=== PATIENT | female | born 1995 | race Caucasian/White ===

== ENCOUNTER → 2017-04-07 | Outpatient (CLI) | payer SELFPAY ==
--- NOTE | 2017-04-07 17:44 | RADIOLOGY REPORT (SQ) ---
EXAM DESCRIPTION: U/S OB 14+ TRNABD 1GES W/O DOP COMPLETED DATE/TIME: 04/07/2017 5:19 pm REASON FOR STUDY: ENCOUNTER FOR SUPERVISION OF NORMAL FIRST , SECOND TRIMESTER Z34.02 ENCN TR FOR SUPRVSN OF NORMAL FIRST PREG, SECOND TRIME COMPARISON: None. TECHNIQUE: Static and Dynamic grayscale imaging performed of gravid uterus using transabdominal appr oach. Additional selected color Doppler and spectral images recorded. All stored on PACS. LIMITATIONS: None. FINDINGS: EGA: 33 weeks 5 days. DIANA: 05/21/2017 EFW: 2,147 grams JAIMEE: 10.8 PLACENTA: Anterior location. GRADE: II PRESENTATION: Cephalic. ANATOMY: HEART RATE: 175 beats per minute. FOUR CHAMBER HEART: Visualized. THREE VESSEL CORD: Yes. CORD INSERTION: Visualized. KIDNEYS AND BLADDER: Visualized. Appear normal. STOMACH: Visualized. Appears normal. SPINE: Normal as visualized. BRAIN AND LATERAL VENTRICLES: Poorly visualized due to age and lie. OTHER: No other significant finding. MATERNAL ADNEXA: Maternal ovaries not visualized. CERVICAL LENGTH: 3.1 cm. Closed. OTHER: No other significant finding. IMPRESSION: LIVING INTRAUTERINE . ESTIMATED GESTATIONAL AGE 33 WEEKS 5 DAYS. NO VISUALIZED ANOMALIES. Trimester of : Third trimester - 28 weeks to delivery. TECHNICAL DOCUMENTATION: JOB ID: [id number] [employer]- All Rights Reserved
== END ==
LOC: RAD 15:39
PROVIDERS: ATTEND Nurse Practitioner Women's Health
DX: Z34.03 Encounter for supervision of normal first pregnancy, third trimester (principal)
CPT/HCPCS: 76805

== ENCOUNTER 2017-04-12 02:11 | Inpatient (IN) | payer SELFPAY ==
[2017-04-12] MEDS ORDERED: RINGERS SOLUTION,LACTATED 1,000 ML IV PRN (02:13)
[2017-04-12] MEDS ORDERED: OXYTOCIN/NORMAL SALINE 20 UNIT/1,000 ML RTUINJ ONE (02:30)
[2017-04-12] MEDS ORDERED: LIDOCAINE 1% INJ-PF (10 MG/ML) 30 ML SDV ONE (02:30)
[2017-04-12] MEDS ORDERED: MISOPROSTOL 0.2 MG TABLET ONE (02:30)
[2017-04-12 02:52] LABS: ABSOLUTE LYMPHOCYTES (AUTO) 1.4 10^3/uL (0.5-4.7); ABSOLUTE MONOCYTES (AUTO) 1.1 10^3/uL (0.1-1.4); ABSOLUTE NEUT (AUTO) 16.4 10^3/uL (1.7-8.2); BASOPHILS % (AUTO) 0.2 % (0-2); HEMATOCRIT 35.7 % (36.0-47.0); HEMOGLOBIN 12.2 g/dL (12.0-15.5); HGB HCT DIFFERENCE 0.9; LYMPHOCYTES % (AUTO) 7.2 % (13-45); MEAN CORPUSCULAR HGB CONC 34.2 g/dL (32.0-36.0); MEAN CORPUSCULAR VOLUME 88 fl (80-97); MONOCYTES % (AUTO) 5.7 % (3-13); RED BLOOD COUNT 4.06 10^6/uL (3.72-5.28); RED CELL DISTRIBUTION WIDTH 13.8 % (11.5-14.0); SEGMENTED NEUTROPHILS % (AUTO) 86.9 % (42-78); WHITE BLOOD COUNT 18.9 10^3/uL (4.0-10.5)
[2017-04-12] MEDS ORDERED: GLYCERIN/WITCH HAZEL LEAF 1 EACH MED..PAD TP PRN (03:39)
[2017-04-12] MEDS ORDERED: DIPHENHYDRAMINE HCL 25 MG CAPSULE PO PRN (03:39)
[2017-04-12] MEDS ORDERED: PROMETHAZINE HCL INJ 25 MG/1 ML VIAL IV PRN (03:39)
[2017-04-12] MEDS ORDERED: MAGNESIUM HYDROXIDE SUSP 30 ML UDCUP PO PRN (03:39)
[2017-04-12] MEDS ORDERED: ZOLPIDEM TARTRATE 5 MG TABLET PO PRN (03:39)
[2017-04-12] MEDS ORDERED: BENZOCAINE/MENTHOL AEROSOL SPRAY 56 ML TOP PRN (03:39)
[2017-04-12] MEDS ORDERED: DIPH/PERTUSS(ACELL)/TETANUS VAC/PF 0.5 ML SYR (>=10YO) IM PRN (03:39)
[2017-04-12] MEDS ORDERED: NA PHOS,M-B/NA PHOS,DI-BA (ADULT) 133 ML ENEMA PR PRN (03:39)
[2017-04-12] MEDS ORDERED: PSEUDOEPHEDRINE HCL 30 MG TABLET PO PRN (03:39)
[2017-04-12] MEDS ORDERED: DIBUCAINE 1% OINTMENT 28 GM TP PRN (03:39)
[2017-04-12] MEDS ORDERED: PROMETHAZINE HCL 25 MG SUPP.RECT PR PRN (03:39)
[2017-04-12] MEDS ORDERED: MEASLES,MUMPS&RUBELLA VACC/PF 0.5 ML VIAL SUBCUT PRN (03:39)
[2017-04-12] MEDS ORDERED: PROMETHAZINE HCL 25 MG TABLET PO PRN (03:39)
[2017-04-12] MEDS ORDERED: ACETAMINOPHEN WITH CODEINE #3 TABLET PO PRN ×2 (03:39)
[2017-04-12] MEDS ORDERED: ACETAMINOPHEN 650 MG SUPP.RECT PR PRN (03:39)
[2017-04-12] MEDS ORDERED: OXYTOCIN/NORMAL SALINE 20 UNIT/1,000 ML RTUINJ IV PRN (03:39)
[2017-04-12] MEDS ORDERED: IBUPROFEN 800 MG TABLET ONE (04:36)
[2017-04-12 04:44] LABS: APPEARANCE,URINE CLOUDY; BILIRUBIN,URINE NEGATIVE (NEGATIVE); GLUCOSE, URINE NEGATIVE (NEGATIVE); KETONES,URINE 20 mg/dL (NEGATIVE); LEUKOCYTE ESTERASE,URINE MODERATE (NEGATIVE); NITRITE,URINE NEGATIVE (NEGATIVE); PROTEIN,URINE 100 mg/dL (NEGATIVE); URINE SPECIFIC GRAVITY 1.004; UROBILINOGEN,URINE NEGATIVE mg/dL (<2.0)
[2017-04-12 05:02] LABS: URINE BARBITURATES SCREEN NEGATIVE; URINE METHADONE SCREEN NEGATIVE; URINE OPIATES LOW NEGATIVE; URINE PHENCYCLIDINE SCREEN NEGATIVE
--- NOTE | 2017-04-12 05:23 | Admission Physical ---
Datetime Report Generated by CPN: 04/12/2017 05:23 CURRENT ADMISSION Hx Assessment: No Care Chief Complaint Other: brought by ems after home delivery Admit Impression- Other: s/p vag delivery with perineal laceration Admit Plan- Other: initiate postdelivery care ALLERGIES Medication Allergies: No Medication Allergies: No Known Allergies (12/10/2011) Latex: No Latex Allergies OBSTETRICAL HISTORY EDC: 05/21/2017 00:00 : 1 Para: 1 Term: 0 : 1 SAB: 0 IAB: 0 Livin Gestational Diabetes: No Rh Sensitization: No Incompetent Cervix: No Infertility: No ART Treatment: No Uterine Anomaly: No IUGR: No Hx Previous C/S: No Macrosomia: No Hx Loss/Stillborn: No PIH: No Hx : No Placenta Previa/Abruption: No Depression/PP Depression: No PTL/PROM: No Post Hemorrhage: No Current Procedures: Ultrasound Obstetrical History Comments: 2016 baby boy SEE RECORDS Alcohol: No Marijuana : No Cocaine: No Other Illicit Drugs: No Cigarettes: Never Smoker. [id number] MEDICAL HISTORY Diabetes: No Blood Transfusion: No Pulmonary Disease (Asthma, TB): No Breast Disease: No Hypertension: No Pilates Coordinator Surgery: No Heart Disease: No Hosp/Surgery: No Autoimmune Disorder: No Anesthetic Complications: No Kidney Disease: No Abnormal Pap Smear: No Neuro/Epilepsy: No Psychiatric Disorders: No Other Medical Diseases: No Hepatitis/Liver Disease: No Significant Family History: No Varicosities/Phlebitis: No Trauma/Violence : No Thyroid Dysfunction: No INFECTIOUS HISTORY Gonorrhea: No Genital Herpes: No Chlamydia: No Tuberculosis: No Syphilis: No Hepatitis: No HIV/AIDS Exposure: No Rash or Viral Illness: No HPV: No PHYSICAL EXAM General: Normal HEENT: Normal Neurologic: Normal Thyroid: Normal Heart: Normal Lungs: Normal Breast: Normal Back: Normal Abdomen: Normal Genitourinary Exam: Abnormal Extremities: Normal DTRs: Normal Pelvic Type: Adequate Physical Exam Comments: 2nd degree vag delivery with extension into ant anal sphincter placenta examined-intact FETUS A Admit Comment: see delivery note for repair of lac -check no pnc labs PLANS FOR LABOR AND DELIVERY Labor and Delivery: None Feeding Preference: Breast Benefit of Breast Feed Discussed: Yes Circumcision: Yes INFORMED CONSENT Signature: with User ID: [email or web address]
--- NOTE | 2017-04-12 05:25 | Delivery Summary ---
Del Sum A-C Datetime Report Generated by CPN: 04/12/2017 05:25 DELIVERY PERSONNEL DELIVERY PERSONNEL: [id number] Delivery Doctor:: Allison Riojas MD Labor and Delivery Nurse:: Yaneth Yao RN Insulation Board Calender Operator/HARDWARE INSTALLATION COORDINATOR: Amy Figueredo, ST MATERNAL INFORMATION Delivery Anesthesia: None Medications After Delivery: Pitocin Bolus-Please Comment; Pitocin Drip 20 Units/1000ml NSS Meds After Delivery Comment: NS with Pitocin 20 units/liter IVF bolus Maternal Complications: Precipitous Labor (<3hrs); Other Other Maternal Complications: no PNC, delivered at home Provider Comments: Pt brought by ems after home delivery of male . Placenta spont and intact to my inspection. Perineal lac repaired. EBL 200cc LABOR SUMMARY EDC: 05/21/2017 00:00 No. Babies in Womb: 1 Labor Anesthesia: None LABOR INFORMATION Reason for Induction: Not Applicable Oxytocin: N/A Group B Beta Strep: unknown Antibiotics # of Doses: 0 Steroids Given: None Reason Steroids Not Administered: Not Applicable STAGES OF LABOR Stage 3 hr: 1 Stage 3 min: 23 VAGINAL DELIVERY Laceration Extension: Second Degree Laceration Type: Perineal Laceration Repair Note: with 1 percent lidcaine and 2- chromic ant and inf aspect of anal sphincter capsule reapproximaed with 2 -0 chromic figure of 8s. Remainder of repair in standard fashion Sponge Count Correct: N/A Sharps Count Correct: Yes CSECTION DELIVERY Primary Indication: N/A Secondary Indication: N/A CSection Incision: N/A BABY A INFORMATION Infant Delivery Date/Time: 04/12/2017 01:19 Method of Delivery: Vaginal Born in Route : Yes : N/A Forceps: N/A Vacuum Extraction: N/A Shoulder Dystocia : No PRESENTATION/POSITION BABY A Presentation: Cephalic Cephalic Presentation: Vertex Breech Presentation: N/A PLACENTA INFORMATION BABY A Placenta Delivery Time : 04/12/2017 02:42 Placenta Method of Delivery: Spontaneous Placenta Status: Delivered SCORES BABY A Heart Rate 10 min: >100 bpm Resp Effort 10 min: Good Cry Reflex Irritability 10 min: Cough or Sneeze or Pulls Away Muscle Tone 10 min: Active Motion Color 10 min: Body Avenue B And C, Extremities Blue Resuscitation Effort 10 min: Tactile Stimulation SCORE 10 MIN: 9 INFORMATION BABY A Gestational Age at Delivery: 34.3 Gestational Status: Late - 34- 36.6 Weeks Infant Outcome : Liveborn Infant Condition : Stable Sex: Male IDENTIFICATION BABY A Infant Verification Date/Time: 04/12/2017 03:46 ID Band Number: [id number] Mother's Name Verified: Yes Infant RN Verifying Infant: rn jhoan Additional Verifying Personnel: rody gomez WEIGHT/LENGTH BABY A Birthweight (gm): 3080 Weight (lb): 6 Weight (oz): 13 Infant Length (in): 20.25 Infant Length (cm): 51.44 CORD INFORMATION BABY A No. Cord Vessels: 3 Nuchal Cord : N/A Cord Blood Taken: No-Annotate delivered at home Infant Suction: Mouth; Nose
[2017-04-12] MEDS: IBUPROFEN 800 MG TABLET PO SCH ×3 (05:51→22:38)
[2017-04-12 06:08] LABS: CHLAM PCR NOT DETECTED (NOT DETECT)
[2017-04-12] MEDS: FAMOTIDINE 20 MG TABLET PO SCH ×2 (09:10→22:38)
[2017-04-12] MEDS: SENNOSIDES/DOCUSATE 8.6-50 MG 1 EACH TABLET PO SCH (09:10)
[2017-04-12] MEDS: DOCUSATE SODIUM 100 MG CAPSULE PO SCH ×2 (09:10→17:14)
[2017-04-12] MEDS: PRENATAL VITAMIN W-O CA NO5/FE FUMARATE/FA CAPSULE PO SCH (09:10)
[2017-04-12] MEDS: FERROUS SULFATE 325 MG TABLET PO SCH ×2 (09:11→17:14)
[2017-04-13] MEDS: IBUPROFEN 800 MG TABLET PO SCH ×3 (06:27→21:31)
[2017-04-13 07:42] LABS: HEPATITIS C VIRUS AB <0.1 s/co ratio (0.0-0.9)
[2017-04-13 08:09] LABS: HEMATOCRIT 34.2 % (36.0-47.0); HEMOGLOBIN 11.7 g/dL (12.0-15.5); HGB HCT DIFFERENCE 0.9; MEAN CORPUSCULAR HEMOGLOBIN 30.7 pg (27.0-33.4); MEAN CORPUSCULAR HGB CONC 34.2 g/dL (32.0-36.0); MEAN CORPUSCULAR VOLUME 90 fl (80-97); RED BLOOD COUNT 3.81 10^6/uL (3.72-5.28); WHITE BLOOD COUNT 13.5 10^3/uL (4.0-10.5)
[2017-04-13] MEDS: DOCUSATE SODIUM 100 MG CAPSULE PO SCH ×2 (10:01→17:26)
[2017-04-13] MEDS: FAMOTIDINE 20 MG TABLET PO SCH ×2 (10:01→21:31)
[2017-04-13] MEDS: FERROUS SULFATE 325 MG TABLET PO SCH ×2 (10:02→17:26)
[2017-04-13] MEDS: PRENATAL VITAMIN W-O CA NO5/FE FUMARATE/FA CAPSULE PO SCH (10:02)
[2017-04-13] MEDS: SENNOSIDES/DOCUSATE 8.6-50 MG 1 EACH TABLET PO SCH (10:02)
--- NOTE | 2017-04-13 10:35 | PDOC PROGRESS REPORT ---
Subjective-OB Subjective: Post Delivery Day: 21 year old. Denies any needs at this time Doing well, mother in room feeding baby, plans to breastdeed, scant bleeding, voiding, eating well Physical Exam (OB) Vital Signs: Temp Pulse Resp BP Pulse Ox 98.2 F 66 16 114/54 L 100 04/13/17 08:10 04/13/17 08:10 04/13/17 08:10 04/13/17 08:10 04/13/17 08:10 Intake & Output 04/12/17 04/13/17 04/14/17 06:59 06:59 06:59 Weight 70.9 kg - PIH/Pre-Eclampsia DTR's: 2 + Clonus: Negative Headache: Absent Epigastric Pain: No Visual Changes: No - Lochia Lochia Amount: Scant < 10 ml Lochia Color: Rubra/Red - Abdomen Description: Tender Hernia Present: No Fundal Description: Firm Fundal Height: 1/u - 2/u Objective-Diagnostic Laboratory: 04/13/17 07:56 04/13/17 07:56 WBC 13.5 H RBC 3.81 Hgb 11.7 L Hct 34.2 L MCV 90 MCH 30.7 MCHC 34.2 RDW 14.0 Plt Count 252 Assessment and Plan(PN) - Assessment and Plan (1) No care in current Qualifiers: Trimester: third trimester Qualified Code(s): O09.33 - Supervision of with insufficient care, third trimester Is this a current diagnosis for this admission?: Yes (2) home delivery Is this a current diagnosis for this admission?: Yes (3) Vaginal delivery Is this a current diagnosis for this admission?: Yes - Time Spent with Patient Time with patient: Less than 15 minutes Medications reviewed and adjusted accordingly: Yes - Disposition Anticipated Discharge: Home Within: within 24 hours
[2017-04-13 12:23] LABS: ADD HIVPANEL? NO; HIV (1 AND 2) ANTIBODY NEGATIVE (NEGATIVE)
[2017-04-14] MEDS: IBUPROFEN 800 MG TABLET PO SCH ×2 (05:47→13:26)
[2017-04-14 08:58] VITALS: BP 109/61
[2017-04-14] MEDS: SENNOSIDES/DOCUSATE 8.6-50 MG 1 EACH TABLET PO SCH (09:37)
[2017-04-14] MEDS: FAMOTIDINE 20 MG TABLET PO SCH (09:37)
[2017-04-14] MEDS: PRENATAL VITAMIN W-O CA NO5/FE FUMARATE/FA CAPSULE PO SCH (09:37)
[2017-04-14] MEDS: FERROUS SULFATE 325 MG TABLET PO SCH ×2 (09:37→17:03)
[2017-04-14] MEDS: DOCUSATE SODIUM 100 MG CAPSULE PO SCH ×2 (09:37→17:02)
--- NOTE | 2017-04-14 10:39 | PDOC PROGRESS REPORT ---
Subjective-OB Subjective: Post Delivery Day: 21 year old. Denies any needs at this time. Ready for discharge. Physical Exam (OB) Vital Signs: Temp Pulse Resp BP Pulse Ox 98.0 F 69 18 109/61 99 04/14/17 07:46 04/14/17 07:46 04/14/17 07:46 04/14/17 07:42 04/14/17 07:46 - PIH/Pre-Eclampsia DTR's: 2 + Clonus: Negative Headache: Absent Epigastric Pain: No Visual Changes: No - Lochia Lochia Amount: Small 10-25 ml Lochia Color: Rubra/Red - Abdomen Description: Soft Hernia Present: No Bowel Sounds: Normoactive Flatus Presence: Present Stool: Yes Fundal Description: Firm, Midline Fundal Height: u/u - u/2 Objective-Diagnostic Laboratory: 04/13/17 07:56 Assessment and Plan(PN) - Time Spent with Patient Medications reviewed and adjusted accordingly: Yes - Disposition Anticipated Discharge: Home
--- NOTE | 2017-04-14 10:45 | PDOC DISCHARGE SUMMARY ---
Final Diagnosis Discharge Date: 04/14/17 - Final Diagnosis (1) No care in current Is this a current diagnosis for this admission?: Yes (2) Vaginal delivery Is this a current diagnosis for this admission?: Yes (3) home delivery Is this a current diagnosis for this admission?: Yes (4) Premature delivery before 37 weeks Is this a current diagnosis for this admission?: Yes Discharge Data - Discharge Medication Home Medications: No Home Medications 04/12/17 Gestational Age: 34.3 wks Admission Note: Home delivery Procedures: Ultrasound Intrapartum Procedure(s): Spontaneous Vaginal Delivery Complication(s): Laceration-Perineal Laceration-Degree: 2nd - Rochelle Data Baby 1 Male at 10 minutes: 9 Weight: 3.09 kg Home with Mother: Yes Complications: Yes - Premature - Diagnosis Test Laboratory: Temp Pulse Resp BP Pulse Ox 98.0 F 69 18 109/61 99 04/14/17 07:46 04/14/17 07:46 04/14/17 07:46 04/14/17 07:42 04/14/17 07:46 04/12/17 04/12/17 04/13/17 02:38 04:22 07:56 RBC 4.06 3.81 Hgb 12.2 11.7 L Hct 35.7 L 34.2 L Urine Opiates Screen NEGATIVE - Discharge information/Instructions Discharge Activity: Activity As Tolerated, Balance Activity w/Rest, Pelvic Rest , Slowly Increase Activity, No tub bath Discharge Diet: Regular Disposition: HOME, SELF-CARE Follow [facility] with: [facility] in: 4, Weeks
== END 2017-04-14 18:46 | disposition home or self-care (01) | DRG 769 ==
LOC: LR 02:11 → 2S 05:14
PROVIDERS: ADMIT Specialist; ATTEND Specialist
PROC: 0KQM0ZZ Repair Perineum Muscle, Open Approach (ICD-10-PCS; principal; 2017-04-12)
DX: O70.1 Second degree perineal laceration during delivery (principal); Z3A.37 37 weeks gestation of pregnancy
CPT/HCPCS: 36415; 80307; 81005; 85025; 85027; 86592; 86701; 86702; 86762; 86803; 86804; 86850; 86900; 86901; 87340; 87491; 87591; 88307; J2590; J3490